=== PATIENT | male | born 1945 ===

== ENCOUNTER 2024-03-26 08:41 | Outpatient (REF) | payer MEDICARE, SELFPAY ==
--- NOTE | ~2024-03-26 | XR_ITS ---
EXAMINATION: XR pelvis 1-2V, XR knee RT 3V, XR ankle RT min 3V CLINICAL INFORMATION: Reason for Exam M25.559 - Pain in unspecified hip COMPARISON: None. TECHNIQUE: AP, lateral, and oblique views of the ankle, 1 view of the pelvis, 3 views of the right knee and one view of the left knee standing FINDINGS: No acute fracture or dislocation. 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 Advanced osteoarthritis of the right hip with complete loss of joint space, bulky osteophytes and subchondral cystic change. Mild osteoarthritis of the left hip and sacroiliac joints. Ankle mortise is congruent. Plantar calcaneal spurring with calcification along the course of the plantar fascia which may reflect sequelae of prior trauma. Mild osteoarthritis of the foot and ankle with degenerative spurring of the tibiotalar joint and dorsal midfoot. No tibial talar joint effusion. Mild osteoarthritis of the right knee with borderline loss of medial compartment joint space and quadriceps tendon enthesopathy. No suprapatellar joint effusion. Atherosclerotic vascular calcification. XR/XR pelvis 1-2V IMPRESSION: * Advanced osteoarthritis of the right hip. Mild osteoarthritis of the left hip and sacroiliac joints. * Mild osteoarthritis of the foot and ankle. Plantar calcaneal spurring with calcification along the course of the plantar fascia which may reflect sequelae of prior trauma. * Mild osteoarthritis of the right knee.
--- NOTE | ~2024-03-26 | XR_ITS ---
EXAMINATION: XR pelvis 1-2V, XR knee RT 3V, XR ankle RT min 3V CLINICAL INFORMATION: Reason for Exam M25.559 - Pain in unspecified hip COMPARISON: None. TECHNIQUE: AP, lateral, and oblique views of the ankle, 1 view of the pelvis, 3 views of the right knee and one view of the left knee standing FINDINGS: No acute fracture or dislocation. 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 Advanced osteoarthritis of the right hip with complete loss of joint space, bulky osteophytes and subchondral cystic change. Mild osteoarthritis of the left hip and sacroiliac joints. Ankle mortise is congruent. Plantar calcaneal spurring with calcification along the course of the plantar fascia which may reflect sequelae of prior trauma. Mild osteoarthritis of the foot and ankle with degenerative spurring of the tibiotalar joint and dorsal midfoot. No tibial talar joint effusion. Mild osteoarthritis of the right knee with borderline loss of medial compartment joint space and quadriceps tendon enthesopathy. No suprapatellar joint effusion. Atherosclerotic vascular calcification. XR/XR ankle RT min 3V IMPRESSION: * Advanced osteoarthritis of the right hip. Mild osteoarthritis of the left hip and sacroiliac joints. * Mild osteoarthritis of the foot and ankle. Plantar calcaneal spurring with calcification along the course of the plantar fascia which may reflect sequelae of prior trauma. * Mild osteoarthritis of the right knee.
--- NOTE | ~2024-03-26 | XR_ITS ---
EXAMINATION: XR pelvis 1-2V, XR knee RT 3V, XR ankle RT min 3V CLINICAL INFORMATION: Reason for Exam M25.559 - Pain in unspecified hip COMPARISON: None. TECHNIQUE: AP, lateral, and oblique views of the ankle, 1 view of the pelvis, 3 views of the right knee and one view of the left knee standing FINDINGS: No acute fracture or dislocation. 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 Advanced osteoarthritis of the right hip with complete loss of joint space, bulky osteophytes and subchondral cystic change. Mild osteoarthritis of the left hip and sacroiliac joints. Ankle mortise is congruent. Plantar calcaneal spurring with calcification along the course of the plantar fascia which may reflect sequelae of prior trauma. Mild osteoarthritis of the foot and ankle with degenerative spurring of the tibiotalar joint and dorsal midfoot. No tibial talar joint effusion. Mild osteoarthritis of the right knee with borderline loss of medial compartment joint space and quadriceps tendon enthesopathy. No suprapatellar joint effusion. Atherosclerotic vascular calcification. XR/XR knee RT 3V IMPRESSION: * Advanced osteoarthritis of the right hip. Mild osteoarthritis of the left hip and sacroiliac joints. * Mild osteoarthritis of the foot and ankle. Plantar calcaneal spurring with calcification along the course of the plantar fascia which may reflect sequelae of prior trauma. * Mild osteoarthritis of the right knee.
== END 2024-03-26 08:42 | disposition home or self-care (01) ==
LOC: HO.HOSX 08:41
PROVIDERS: Visit Provider Orthopaedic Surgery
DX: M25.561 Pain in right knee (principal); M16.11 Unilateral primary osteoarthritis, right hip; M25.579 Pain in unspecified ankle and joints of unspecified foot; Z86.73 Personal history of transient ischemic attack (TIA), and cerebral infarction without residual deficits
CPT/HCPCS: 72170; 73562; 73610; 99202

== ENCOUNTER 2024-03-26 08:41 | Outpatient (AMB) | payer MEDICARE, SELFPAY ==
--- NOTE | 2024-03-26 08:42 | MHC.OFFVIS ---
Intake Visit Reasons: right knee pain Intake Note: Galina is a 78 year old male who presents today as a new patient with complaints of right knee pain. 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 Hx of DM. He has tried Acetaminophen and Topical pain creams with mild relief. Right knee is painful, however he reports that the right foot & portillo is most painful. His pain is mostly when walking. He utilizes a walker or cane. Allergies No Known Allergies Allergy (Verified 03/26/24 09:07) HPI HPI right knee pain: Details: Galina is a 78 year old male who presents today as a new patient with complaints of right knee pain. 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 Hx of DM. He has tried Acetaminophen and Topical pain creams with mild relief. Right knee is painful, however he reports that the right foot & portillo is most painful. His pain is mostly when walking. He utilizes a walker or cane. [facility] Surgical History (Updated 03/26/24 @ 09:11 by Digna Lopes [facility]) H/O heart valve replacement with bioprosthetic valve Physical Exam Extrem Other: right knee and ankle are aligned normally with no effusion can stand on toes and no palpable pain He does have discomfort with hip impingement testing and a Trendelenberg gait Results Reviewed Results Reviewed: I personally reviewed relevant radiographs. 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 He does not communicate well but I think his pain is coming from his right hip. I recommend a hip injection. He is on Plavix and this may need to be stopped but I would leave that up to the injecting MD. May follow up with me after his injection is performed. Orders: Orders XR knee RT 3V Today M25.561 - Pain in right knee XR pelvis 1-2V Today M25.559 - Pain in unspecified hip XR ankle RT min 3V Today M25.579 - Pain in unspecified ankle and joints of unspecified foot Referrals Pain Management Referral M16.11 - Unilateral primary osteoarthritis, right hip Coding Level of Care Code New Pt Level 4 (21729) Diagnoses Osteoarthritis of right hip M16.11
== END 2024-03-26 10:19 | disposition home or self-care (01) ==
PROVIDERS: Visit Provider Orthopaedic Surgery
DX: M16.11 Unilateral primary osteoarthritis, right hip (principal)
CPT/HCPCS: 99204

== ENCOUNTER 2024-05-19 06:29 | Outpatient (REF) | payer MEDICARE, SELFPAY | END 2024-05-19 06:30 | disposition home or self-care (01) | LOC: CF 06:29 | PROVIDERS: Visit Provider Anesthesiology | DX: Z13.89 Encounter for screening for other disorder (principal) ==